=== PATIENT | female | born 1970 | race Caucasian/White ===

== ENCOUNTER 2019-09-15 12:05 | Emergency (ER) | payer OTHER ==
[~2019-09-15] VITALS: Ht 162.6 cm; Wt 65.8 kg
[~2019-09-15 12:05] MED LIST: PREMARIN0.625 MG PO
[2019-09-15] MEDS ORDERED: TETANUS/DIPHTHERIA TOX ADULT 0.5 ML SYR IM ONE (12:45)
[2019-09-15] MEDS ORDERED: ACETAMINOPHEN 325 MG TAB PO ONE (12:45)
--- NOTE | 2019-09-15 13:15 | Emergency Department Note ---
History of Present Illnes History of Present Illness Chief Complaint: Eye, Ear, Nose, Throat, Dental History of Present Illness This is a 48 year old female Chief Complaint Comment fell into wall this am when getting up from commode. hit her nose. states pain in nose and neck. no neuro defecits at triage. aaox4. ambulatory. seen in triage by md. no sob. pt crying states overwhelmed taking care of mom who is sick with cancer. Historian: Patient Arrival Mode: Car Onset (how long ago): hour(s) Location: Nose Quality: Dull Radiation: Reports non-radiation Severity: mild Onset quality: sudden Duration (how long): hour(s) (1) Timing of current episode: constant Progression: unchanged Chronicity: new Context: Denies recent illness Relieving factors: none Exacerbating factors: none Associated symptoms: Reports denies other symptoms Past Medical/Family History Physician Review I have reviewed the patient's past medical and family history. Any updates have been documented here. Past Medical History Recent Fever: No Clinical Suspicion of Infectio: No New/Unexplained Change in Ment: No Other Medical History: IMMUNE DISORDER- UNKNOWN NAME Other Surgery: CARPAL TUNNEL NOSE x 3 R/L SHOULDER, CYST IN WRIST Review of Systems Review of Systems Constitutional: Reports no symptoms EENTM: Reports no symptoms, Reports nose pain Cardiovascular: Reports no symptoms Respiratory: Reports no symptoms Gastrointestinal: Reports no symptoms Genitourinary: Reports no symptoms Musculoskeletal: Reports no symptoms Integumentary: Reports no symptoms Neurological: Reports no symptoms Psychological: Reports no symptoms Endocrine: Reports no symptoms Hematological/Lymphatic: Reports no symptoms Physical Exam Related Data Allergies: Coded Allergies: No Known Allergies (Unverified , 09/07/13) Triage Vital Signs Vital Signs Date Time Temp Pulse Resp B/P (MAP) Pulse Ox O2 Delivery O2 Flow Rate FiO2 09/15/19 12:32 98.2 100 18 132/100 99 Room Air Vital signs reviewed: Yes Physical Exam CONSTITUTIONAL Constitutional: Present well-developed, Present well-nourished HENT HENT: Present normocephalic, Present oropharynx clear/moist, Present nose normal; Absent atraumatic (Small abrasion to nasal bridge) HENT L/R: Present left ext ear normal, Present right ext ear normal EYES Eyes: Reports PERRL, Reports conjunctivae normal NECK Neck: Present ROM normal PULMONARY Pulmonary: Present effort normal, Present breath sounds normal CARDIOVASCULAR Cardiovascular: Present regular rhythm, Present heart sounds normal, Present capillary refill normal, Present normal rate GASTROINTESTINAL Abdominal: Present soft, Present nontender, Present bowel sounds normal GENITOURINARY Genitourinary: Present exam deferred SKIN Skin: Present warm, Present dry MUSCULOSKELETAL Musculoskeletal: Present ROM normal NEUROLOGICAL Neurological: Present alert, Present oriented x 3, Present no gross motor or sensory deficits PSYCHOLOGICAL Psychological: Present mood/affect normal, Present judgement normal Assessment & Plan Medical Decision Making MDM 48-year-old female presents for concerns over nasal fracture. She states she fell off of the commode today and hit her nose. Denies loss of consciousness or any other concerns. Exam shows a small abrasion to the nasal bridge. Her tetanus was updated. She was given Tylenol for pain. CT facial bones shows nondisplaced bilateral nasal bone fractures which are age indeterminate. I discussed results patient and she will follow up with primary care provider or return to the emergency department for new or worsening symptoms. Patient is appropriate for discharge. Reassessment Reassessment time: 15:54 Reassessment Well appearing,NAD Assessment & Plan Final Impression: (1) Nasal fracture Depart Disposition: HOME, SELF-CARE Last Vital Signs Date Time Temp Pulse Resp B/P (MAP) Pulse Ox O2 Delivery O2 Flow Rate FiO2 09/15/19 12:32 98.2 100 18 132/100 99 Room Air Home Meds Reported Medications Estrogens Conjugated (PREMARIN) 0.625 Mg Tab, 0.625 MG PO DAILY, #30 TAB 09/07/13 Medications in the ED Tetanus/ Diphtheria Toxoids 0.5 ml ONCE ONCE IM Last administered on 09/15/19at 12:41; Admin Dose 0.5 ML; Start 09/15/19 at 12:45; Stop 09/15/19 at 12:46; Status DC Acetaminophen 975 mg ONCE ONCE PO Last administered on 09/15/19at 12:42; Admin Dose 975 MG; Start 09/15/19 at 12:45; Stop 09/15/19 at 12:46; Status DC CHAPO DIALLO MD Sep 15, 2019 13:15
--- NOTE | 2019-09-15 14:28 | Diagnostic Imaging Report ---
EXAMINATION: Head and face CT without contrast. HISTORY: Status post fall, trauma, head and neck pain, facial pain. COMPARISON: None. TECHNIQUE: Multidetector axial images were obtained without contrast from the foramen magnum to the vertex and over the face. The images were reconstructed using brain and bone algorithms. Thin section brain images were reformatted into coronal and sagittal planes. Intravenous contrast: None. Dose modulation, iterative reconstruction, and/or weight based adjustment of the mA/kV was utilized to reduce the radiation dose to as low as reasonably achievable. Head CT findings: Skull: No lytic or blastic lesions. No fractures. Parenchyma: Normal. No mass, hemorrhage or CT evidence of acute vascular insult. Brain volume: Normal for age. Ventricles: No hydrocephalus or displacement. Arteries: No density suggestive of thrombus. Dural sinuses: No abnormal density. Extra-axial spaces: No abnormal density. Foramen magnum: No mass, Chiari malformation, or basilar invagination. Sella: No obvious mass. Paranasal/mastoid sinuses: Imaged portions unremarkable. Face CT findings: Bones: Age indeterminate, probably acute on chronic bilateral nasal bones comminuted and displaced fracture partially extending to the anterior nasal septum. Minimal associated overlying soft tissue swelling Facial soft tissues: Otherwise no abnormalities. Orbits contents: Unremarkable. Paranasal sinuses and drainage pathways: Clear and patent. Nasal septum and nasal cavities: Mild right anterior deviation of the nasal septum. Anatomic variations: No significant anatomic variations. Teeth: No acute abnormality of the visualized teeth. TMJs: Degenerative changes of the right TMJ which is partially dislocated anteriorly. IMPRESSION: Head CT: No acute traumatic intracranial abnormalities, particularly no hemorrhage Face CT: 1. Age indeterminate, likely acute on chronic bilateral nasal bones fracture as detail above. 2. Mild prenasal soft tissue swelling. 3. 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 Signed by: Dr. Gail Quinonez M.D. on 09/15/2019 2:24 PM
--- NOTE | 2019-09-15 14:32 | Diagnostic Imaging Report ---
EXAMINATION: CT of the cervical spine HISTORY: Status post fall, trauma, pain COMPARISON: None available TECHNIQUE: Multidetector helical axial images were obtained without contrast from the foramen magnum to T1. The images were reconstructed using bone and soft tissue algorithms and were viewed in axial, sagittal and coronal planes. Dose modulation, iterative reconstruction, and/or weight based adjustment of the mA/kV was utilized to reduce the radiation dose to as low as reasonably achievable. FINDINGS: Alignment: Mild reversal of the cervical lordosis which may be related to muscle spasm or positional. Soft tissues: Normal Vertebrae: Normal height and density. No acute fracture, infection or neoplasm Degenerative changes: C1-C2: Normal C2-C3: Uncovertebral and facet arthroses. Mild foraminal stenosis on the right. C3-C4: Uncovertebral and facet arthrosis. Moderate right and mild left foraminal stenoses. C4-C5: Uncovertebral and facet arthrosis. Moderately severe right foraminal stenoses. C5-C6: Uncovertebral and facet arthrosis. Mild right foraminal stenoses. C6-C7: Uncovertebral and facet arthrosis. Minimal bilateral foraminal narrowing. C7-T1: Normal IMPRESSION: 1. No acute cervical spine postraumatic abnormalities. 2. Mild chronic degenerative changes as above. Note: Acute postraumatic spinal cord, vascular or ligamentous injuries cannot adequately be assessed by CT. Signed by: Dr. Gail Quinonez M.D. on 09/15/2019 2:28 PM
--- NOTE | 2019-09-15 15:00 | NUR ---
Assumed care of pt in rm 7, pt reports she fell forward hitting wall last night. Small abrasion with redness noted to nose. Pt reports to this nurse that the tylenol did not work. Notified .
== END 2019-09-15 15:30 | disposition home or self-care (01) ==
LOC: ER 12:45
DX: S02.2XXA Fracture of nasal bones, initial encounter for closed fracture (principal); W18.12XA Fall from or off toilet with subsequent striking against object, initial encounter; Y92.002 Bathroom of unspecified non-institutional (private) residence as the place of occurrence of the external cause
CPT/HCPCS: 70450; 70486; 72125; 90714; 99283